=== PATIENT | female | born 1970 | race Caucasian/White ===

== ENCOUNTER 2018-05-24 10:16 | Emergency (ER) | payer OTHER ==
[~2018-05-24] VITALS: Ht 170.2 cm; Wt 101.6 kg
[~2018-05-24 10:16] MED LIST: BAY PO; FENOFIBRATE130 MG PO; GLU5 PO; GLU500 PO; KLO1 PO; NEU300 PO; NOR5 PO; PRI20 PO; TORADOL10 MG PO; ZES20 PO; ZOC20 PO; [UNRECOGNIZED DRUG - OTHER] PO
[2018-05-24 10:24] VITALS: Ht 170.2 cm; Wt 101.6 kg
[2018-05-24 11:22] LABS: BASOPHIL % 0.4 % (0-2); PLATELET COUNT 237 x10^3mcL (130-400); RED CELL DISTRIBUTION WIDTH 12.9 % (11.5-14.5)
[2018-05-24 11:33] LABS: CALCIUM 9.4 mg/dL (8.5-10.1); CARBON DIOXIDE 24.3 mmol/L (21-32); CHLORIDE SERUM 104 mmol/L (98-107); CREATININE SERUM 0.5 mg/dL (0.6-1.0); GFR1 > 60 mL/min; GLUCOSE SERUM 268 mg/dL (74-106); POTASSIUM SERUM 3.8 mmol/L (3.5-5.1); SODIUM SERUM 138 mmol/L (136-145)
[2018-05-24 11:38] LABS: ALKALINE PHOSPHATASE 119 U/L (46-116); ALT/SGPT 26 U/L (14-59); AST/SGOT 16 U/L (15-37); TOTAL PROTEIN, SERUM 7.1 g/dL (6.4-8.2)
[2018-05-24 11:39] LABS: ALBUMIN 3.1 g/dL (3.4-5.0)
[2018-05-24 14:49] VITALS: BP 112/77
== END 2018-05-24 14:49 | disposition home or self-care (01) ==
LOC: ED 10:16
PROVIDERS: Emergency Medicine
DX: L02.416 Cutaneous abscess of left lower limb (principal); I10 Essential (primary) hypertension; E11.9 Type 2 diabetes mellitus without complications; J45.909 Unspecified asthma, uncomplicated
CPT/HCPCS: 82962

== ENCOUNTER 2018-05-27 08:27 | Emergency (ER) | payer OTHER ==
[~2018-05-27] VITALS: Ht 170.2 cm; Wt 100.7 kg
[2018-05-27 08:35] VITALS: BP 146/84; Ht 170.2 cm; Wt 100.7 kg
== END 2018-05-27 09:04 | disposition home or self-care (01) ==
LOC: ED 08:27
DX: L02.416 Cutaneous abscess of left lower limb (principal); L02.415 Cutaneous abscess of right lower limb; J45.909 Unspecified asthma, uncomplicated; I10 Essential (primary) hypertension; E11.40 Type 2 diabetes mellitus with diabetic neuropathy, unspecified

== ENCOUNTER 2018-12-07 10:39 | Emergency (ER) | payer OTHER ==
[~2018-12-07] VITALS: Ht 170.2 cm; Wt 99.5 kg
[2018-12-07 11:20] VITALS: BP 139/72
[2018-12-07 13:27] LABS: CALCIUM 8.6 mg/dL (8.5-10.1); CARBON DIOXIDE 28.7 mmol/L (21-32); CHLORIDE SERUM 103 mmol/L (98-107); CREATININE SERUM 0.6 mg/dL (0.6-1.0); GFR1 > 60 mL/min; GLUCOSE SERUM 263 mg/dL (74-106); POTASSIUM SERUM 3.8 mmol/L (3.5-5.1); SODIUM SERUM 138 mmol/L (136-145)
[2018-12-07 13:32] LABS: ALKALINE PHOSPHATASE 137 U/L (46-116); ALT/SGPT 37 U/L (14-59); AST/SGOT 13 U/L (15-37); BILIRUBIN TOTAL 0.34 mg/dL (0.20-1.00); LIPASE 143 IU/L (73-393); TOTAL PROTEIN, SERUM 7.7 g/dL (6.4-8.2)
[2018-12-07 13:34] LABS: ALBUMIN 3.2 g/dL (3.4-5.0); BASOPHIL % 0.4 % (0-2); PLATELET COUNT 300 x10^3mcL (130-400); RED CELL DISTRIBUTION WIDTH 12.9 % (11.5-14.5)
[2018-12-07 14:55] LABS: UA SPECIFIC GRAVITY 1.025 (1.005-1.035); microscopic required? YES; urine erythrocyte 3+ (NEGATIVE)
== END 2018-12-07 15:11 | disposition home or self-care (01) ==
LOC: ED 10:39
PROVIDERS: Emergency Medicine
DX: K59.00 Constipation, unspecified (principal); N39.0 Urinary tract infection, site not specified
CPT/HCPCS: J1885; J7030